=== PATIENT | female | born 1970 | race Caucasian/White ===

== ENCOUNTER → 2020-12-10 13:22 | Outpatient (CLI) | payer SELFPAY ==
--- NOTE | 2020-12-10 12:30 | CER_PTH ---
PATIENT: GREG MENDEZ LOC: [facility] U#:[id number] AGE/SX: 54/F ROOM: RE12/10/[address]: Dr. Hieu Miguel MD : [id number] BED: DIS: SPEC #: [id number] RECD: 12/10/20 14:31 STATUS: STEPHEN AVILADarin #: [id number] ROLA: 12/10/20 12:[address]: Hieu Miguel DEPT: SURGICAL PATHOLOGY RECD BY: Brenda Anderson Tissues: POLYP Procedures: Surgery Specimen Level IV HEADER OPERATION: Cervical polyp removal PRE-OP DIAGNOSIS: Cervical polyp TISSUE SUBMITTED: Cervical polyp MICROSCOPIC DIAGNOSIS Cervical polyp, biopsy: Fragments of benign endocervical polyp. MIR:raji 12/14/2020 MICROSCOPIC DESCRIPTION Slides are reviewed. GROSS DESCRIPTION Received in fixative is one container labeled with the patient's name and designated cervical polyp. The specimen consists of a thompson-pink polyp measuring 1.5 x 0.5 x 0.3 cm. Also present in the container are multiple fragments of thompson mucoid tissue measuring in aggregate 2.5 x 2.5 x 0.5 cm. The entire specimen is submitted in one cassette. / SJ:raji 12/11/20 TC:5 CPT: [id number]
== END ==
PROVIDERS: Visit Provider Obstetrics & Gynecology
DX: N84.1 Polyp of cervix uteri (principal)
CPT/HCPCS: 88305